=== PATIENT | female | born 2005 | race Caucasian/White ===

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

== ENCOUNTER 2024-07-19 10:44 | Emergency (ER) | payer BC, SELFPAY ==
[2024-07-19 10:59] VITALS: BP 113/71; PULSE 86; RESP 16; TEMP 36.7; O2SAT 100
[2024-07-19 11:18] LABS: EDCOVIDSCREEN Negative (Negative); EDINFLUASCREEN Negative (Negative); EDINFLUBSCREEN Positive (Negative)
--- NOTE | 2024-07-19 11:28 | ED.URI ---
HPI - URI/Sore Throat General Chief Complaint: Upper Respiratory Infection Stated Complaint: COUGH/RUNNY NOSE/CONGESTION/NOT SLEEPING Time Seen by Provider: 07/19/24 11:04 Source: patient, RN notes reviewed and old records reviewed Mode of arrival: ambulatory Limitations: no limitations History of Present Illness HPI Narrative: 19-year-old female to Express Care for complaint of chest congestion, cough, nasal congestion, decreased sleep and bilateral ear pressure since Thursday. Patient denies fever, sore throat, shortness of breath, chest pain, pertinent medical history. Patient reports history of asthma and tonsillectomy as well as allergy to clindamycin and penicillin. Patient has attempted to treat at home with [id number] medications. Patient able to tolerate fluids by mouth. Patient resting in exam room in no acute distress. Respirations even and nonlabored. Related Data Allergies Allergy/AdvReac Type Severity Reaction Status Date / Time clindamycin Allergy Hives Verified 07/19/24 11:29 Penicillins Allergy Hives Verified 07/19/24 11:29 Review of Systems Review of Systems: All systems reviewed & are unremarkable except as noted in HPI and below Constitutional: Constitutional: Reports as per HPI and Reports difficulty sleeping Eyes: Eyes: Reports no additional eye complaints ENT: Reports as per HPI, Reports otalgia, Reports nasal congestion and Reports sinus pressure Cardiovascular: Cardiovascular: Reports no additional cardiovascular complaints, Denies chest pain and Denies dyspnea Respiratory: Respiratory: Reports as per HPI and Reports cough Musculoskeletal: Musculoskeletal: Reports no additional musculoskeletal complaints Neurologic: Reports system reviewed and no additional complaints, except as documented Psychiatric: Psychiatric: Reports no additional psychiatric complaints [facility] Past Medical History Medical History COVID Surgical History Surgical History No pertinent past surgical history Family History Family History Mother No pertinent past medical history Social History Social History Smoking status: Never smoker Alcohol intake: current Alcohol use details: social Substance use: never Living arrangements: dorm student housing Gender identity (if verbalized by the patient): Female Sexual Orientation (if Verbalized by the Patient): Straight or Heterosexual Spiritual care concerns: No Comments At the time of my signature, I reviewed and agree with the nursing past medical, surgical, social, and family history. There is no relevant family history pertinent to the patient complaint. Exam Const: General: cooperative, no acute distress, well developed, alert, ill appearing acutely, tired appearing, uncomfortable, well groomed and well nourished Nutritional Appearance: well nourished Orientation/consciousness: patient oriented x3 Limitations: no limitations HENMT: Head: normal to inspection Ears: external ears normal and TM abnormal with fluid behind the TM bilateral Face/Nose/Sinus: Normal external nose present, Normal nares present, normal facial exam, No erythema and No edema Face and sinus: normal facial exam, no erythema and no edema Mouth: Yes Normal oral and palatal mucosa present Eyes: General: appearance normal, both eyes and all related structures Neck: Neck: normal visual inspection, full ROM and no meningeal signs Lymphatic: no lymphadenopathy noted and no lymphedema noted Chest: Chest palpation & inspection: normal inspection of the chest Resp: Effort & Inspection: normal respiratory effort and able to speak in complete sentences Auscultation: clear to auscultation bilaterally Cardio: Jugular venous distension:
== END 2024-07-19 11:40 | disposition home or self-care (01) ==
PROVIDERS: Emergency Provider Nurse Practitioner Family
DX: J10.1 Influenza due to other identified influenza virus with other respiratory manifestations (principal); Z20.822 Contact with and (suspected) exposure to COVID-19; Z86.16 Personal history of COVID-19
CPT/HCPCS: 87635; 87804; 99213; G0463

== ENCOUNTER 2025-02-16 17:46 | Emergency (ER) | payer BC, SELFPAY ==
[2025-02-16 17:57] VITALS: BP 117/69; PULSE 71; RESP 18; TEMP 36.3; O2SAT 100
--- NOTE | 2025-02-16 18:42 | ED.NECK ---
HPI - Neck Pain/Injury General Chief Complaint: Neck Pain/Injury Stated Complaint: Neck Pain Time Seen by Provider: 02/16/25 18:33 Source: patient and RN notes reviewed Mode of arrival: ambulatory Limitations: no limitations History of Present Illness HPI Narrative: Patient presents today complaining of a 2 day history of right posterior neck pain. Denies injury or trauma. Reports some intermittent radiation to the bilateral shoulders with occasional sharp pains in the neck. Denies numbness or tingling in the arms or hands. Pain significantly increases with range of motion of the neck. She currently rates her pain 6/10 and has tried ibuprofen, icy Hot, and ice without much relief. Patient does have history of chronic neck pain for which she has received physical therapy in the past. States her current pain is not similar to her previous pain. Related Data Home Medications ?Medication ?Instructions ?Recorded ?Confirmed ?Last Taken ?Type fexofenadine 180 mg tablet 180 mg PO DAILY 02/16/25 02/16/25 Unknown History (Emmanuelle Allergy) Allergies Allergy/AdvReac Type Severity Reaction Status Date / Time clindamycin Allergy Hives Verified 02/16/25 18:13 Penicillins Allergy Hives Verified 02/16/25 18:13 Review of Systems Review of Systems: CONSTITUTIONAL: Denies body aches, fever, chills, or sweats. EYES: Denies visual changes, redness, or discharge. ENT: Denies rhinorrhea, congestion, sore throat, or otalgia. CARDIOVASCULAR: Denies chest pain, palpitations, or edema. RESPIRATORY: Denies cough or dyspnea. GASTROINTESTINAL: Denies abdominal pain, nausea, vomiting, or diarrhea. GENITOURINARY: Denies dysuria or hematuria. SKIN: Denies rash, itching, or wounds. MUSCULOSKELETAL: + neck pain NEUROLOGIC: Denies headache, numbness, tingling, or weakness. PSYCH: Denies depression or anxiety. [facility] Past Medical History Medical History COVID Surgical History Surgical History No pertinent past surgical history Family History Family History Mother No pertinent past medical history Social History Social History Smoking status: Never smoker Alcohol intake: current Alcohol use details: social Substance use: never Living arrangements: dorm student housing Gender identity (if verbalized by the patient): Female Sexual Orientation (if Verbalized by the Patient): Straight or Heterosexual Spiritual care concerns: No Comments At time of signature, I have reviewed and agree with nursing past medical, surgical, social and family history unless otherwise noted. Please see nursing chart for further information. There is no relevant family history pertinent to the presenting complaint Exam Narrative: GENERAL: Well-appearing, well-nourished, and in no acute distress. HEAD: Normocephalic, atraumatic. EYES: EOMI. No redness or drainage. Conjunctivae normal. ENT: Mucous membranes pink and moist. NECK: Supple. No lymphadenopathy. No bony tenderness of the neck. Patient has very mild left-sided paraspinal muscle tenderness, but more pronounced right-sided paraspinal muscle tenderness that extends to the superior trapezius. No pain in either side with range of motion of the shoulders. Moderately decreased range of motion of the neck in all directions due to increased pain. Distal sensation intact in both hands. Capillary refill normal. Radial pulses normal. Hand industrial tech instructor equal and strong. CHEST: No respiratory distress. EXTREMITIES: Normal range of motion. No edema. SKIN: Warm, dry, no rash. Capillary refill normal. Normal skin turgor. NEURO: No focal deficits. Alert and oriented x3. Gait steady. PSYCH: Normal affect. No signs of depression or anxiety. Course Course Level of Care: Express Care Visit Vital Signs Vital signs: Vital Signs Temperature 97.4 F L 02/16/25 17:57 Pulse Rate 71 02/16/25 17:57 Respiratory Rate 18 02/16/25 17:57 Blood Pressure 117/69 02/16/25 17:57 Pulse Oximetry 100 02/16/25 17:57 Temperature 97.4 F L 02/16/25 17:57 Pulse Rate 71 02/16/25 17:57 Respiratory Rate 18 02/16/25 17:57 Blood Pressure 117/69 02/16/25 17:57 Pulse Oximetry 100 02/16/25 17:57 Reviewed MDM - Neck Pain/Injury MDM Narrative Medical decision making narrative: Patient will be treated for trapezius strain with Flexeril and prednisone. Recommend continuing NSAID with PCP follow-up if symptoms persist. Patient agrees with plan. Anticipatory guidance given. Differential Diagnosis Differential diagnosis: Likely disc disorder of cervical region, cervical radiculopathy and strain of neck muscle Critical Care Time Critical Care Time Critical Care Time: No Discharge Plan Discharge Clinical Impression: Trapezius strain Qualifiers: Encounter type: initial encounter Laterality: unspecified laterality Qualified Code(s): S46.819A - Strain of other muscles, fascia and tendons at shoulder and upper arm level, unspecified arm, initial encounter Patient Disposition: Home Condition: Stable Instructions: Muscle Spasm (ED) Additional Instructions: Please take the Flexeril and prednisone as directed. Do not drive within 8 hours of taking the Flexeril as it can make you drowsy. Continue an anti-inflammatory such as Aleve or ibuprofen. Follow-up with your PCP next week if symptoms are not improving. Patient Language: Macedonian Prescriptions: New cyclobenzaprine 10 mg tablet 10 mg PO TID PRN (Reason: muscle spasm) Qty: 20 0RF prednisone 20 mg tablet 40 mg PO DAILY 5 Days Qty: 10 0RF No Action fexofenadine [Emmanuelle Allergy] 180 mg tablet 180 mg PO DAILY Follow-up/Referrals: PHYSICIAN,DIGITAL PRODUCTION OPERATOR [Primary Care Provider] - Time of Disposition: 18:50
== END 2025-02-16 18:50 | disposition home or self-care (01) ==
PROVIDERS: Emergency Provider Nurse Practitioner
DX: S46.819A Strain of other muscles, fascia and tendons at shoulder and upper arm level, unspecified arm, initial encounter (principal); X58.XXXA Exposure to other specified factors, initial encounter
CPT/HCPCS: 99213; G0463